=== PATIENT | male | born 1990 | race African-American/Black ===

== ENCOUNTER 2019-06-13 08:37 | Emergency (ER) | payer SELFPAY ==
[~2019-06-13] VITALS: Ht 165.1 cm; Wt 75.3 kg
[2019-06-13 09:57] LABS: *BILIRUBIN,URIN NEGATIVE (NEGATIVE); *BLOOD, URINE NEGATIVE (NEGATIVE); *CLARITY,URINE CLEAR (CLEAR); *COLOR,URINE YELLOW (YELLOW); *KETONES,URINE NEGATIVE (NEGATIVE); *UROBILINOGEN,URINE 0.2 E.U./dl (NORMAL); LEUKOCYTE ESTERASE ,URINE NEGATIVE (NEGATIVE); NITRITE, URINE NEGATIVE (NEGATIVE); PH,URINE 6.5 (5.0-8.0); UGLUCOSE NEGATIVE (NEGATIVE)
[2019-06-13] MEDS ORDERED: IOHEXOL 300MG/ML 100 ML INFUS..BTL ONE (10:00)
[2019-06-13] MEDS ORDERED: IV NORMAL SALINE 1000 ML BAG IV ONE ×2 (10:00→11:45)
[2019-06-13] MEDS ORDERED: IV NORMAL SALINE 250 ML IV ONE ×2 (10:00→11:42)
[2019-06-13] MEDS ORDERED: SWABABLE VALVE TRANSFER SET EA MC ONE ×2 (10:00→11:42)
[2019-06-13 10:10] LABS: *AMPHETAMINE, URINE NEGATIVE (NEGATIVE); *BARBITURATE, URINE NEGATIVE (NEGATIVE); *CANNABINOID, URINE NEGATIVE (NEGATIVE); *COCCAINE, URINE NEGATIVE (NEGATIVE); *OPIATE, URINE NEGATIVE (NEGATIVE); *PHENCYCLIDINE SCREEN,URINE NEGATIVE (NEGATIVE)
[2019-06-13 10:16] LABS: BASOPHILS # (AUTO) 0.1 K/uL (0.0-8.0); EOSINOPHILS # (AUTO) 0.1 K/uL (0.0-0.7); EOSINOPHILS % (AUTO) 1.4 % (0.0-7.0); HEMATOCRIT 44.4 % (36.7-47.1); HEMOGLOBIN 14.8 g/dL (12.5-16.3); LYMPHOCYTES # (AUTO) 2.4 K/uL (20.0-40.0); LYMPHOCYTES % (AUTO) 44.2 % (20.5-51.5); MEAN CORPUSCULAR HEMOGLOBIN 29.7 uug (23.8-33.4); MEAN CORPUSCULAR HGB CONC 33 g/dL (32.5-36.3); MEAN CORPUSCULAR VOLUME 88.8 fL (73.0-96.2); MONOCYTES # (AUTO) 0.4 K/uL (2.0-10.0); MONOCYTES % (AUTO) 7.5 % (0.0-11.0); NEUTROPHILS # (AUTO) 2.5 K/uL (1.8-8.9); NEUTROPHILS % (AUTO) 45.9 % (38.5-71.5); PLATELET COUNT (AUTO) 258 K/uL (152-348); WHITE BLOOD COUNT (AUTO) 5.4 K/uL (3.6-10.2)
[2019-06-13 10:20] LABS: CREATININE 0.9 mg/dL (0.6-1.3); POTASSIUM 4.3 mmol/L (3.5-5.1)
[2019-06-13] MEDS ORDERED: IOHEXOL 350 100 ML INFUS..BTL ONE (11:42)
--- NOTE | 2019-06-13 13:05 | NUR ---
Patient discharged to home in stable conditon. Written and verbal after care instructions given. Patient verbalizes understanding of instructions.pt walks i nsteady gait. pt says feels better. copy of all the studies provided for pt to corey thorne.
[2019-06-13 13:06] VITALS: BP 112/81
== END 2019-06-13 13:06 | disposition home or self-care (01) ==
LOC: ER 08:37
DX: I26.99 Other pulmonary embolism without acute cor pulmonale (principal); R07.89 Other chest pain; Z60.2 Problems related to living alone; Z88.2 Allergy status to sulfonamides
CPT/HCPCS: 36415; 71045; 71275; 74177; 80048; 80307; 81001; 84484; 85025; 85379; 93005; 99285; Q9967 ×2; 70030-TC; A4663; J7030; J7050